=== PATIENT | female | born 1955 | race Asian ===

== ENCOUNTER → 2016-10-22 | Outpatient (CLI) | payer OTHER ==
--- NOTE | 2016-10-22 09:01 | US ---
Ultrasound Abdomen Limited INDICATION: Hepatitis B. TECHNIQUE: Limited right upper quadrant ultrasound is performed. No priors for comparison. FINDINGS: The pancreas is within normal limits. Abdominal aorta is normal in size, measuring 2 cm pro ximally, 1.6 cm in the midsection, and 1.6 cm distally. No significant plaque. No aneurysm or dissect ion or periaortic fluid collection. The liver measures 12.8 cm. It is normal in echotexture. No discrete mass. The edges of the border ar e smooth without nodularity. Portal vein is patent. Hepatic vein is patent. Multiple polyps are seen in the gallbladder, the largest measuring 3.5 x 2.7 x 3.7 mm. They do not co ntribute to shadowing. They are adherent to the salas and are nondependent. Nonmobile. No sludge. The gallbladder wall measures 2 mm. Common duct measures 2 mm. Sonographic Decker sign is negative. No p ericholecystic fluid collection. Right kidney measures 11.6 x 4.8 x 3.8 cm. Cortex is 1.3 cm. No hydronephrosis. No ascites or pleural effusion. IMPRESSION: 1. Homogeneous liver with smooth borders. No intrinsic mass. 2. Multiple gallbladder polyps.
== END ==
LOC: FIMAGING 07:20
PROVIDERS: ATTEND Internal Medicine Infectious Disease
DX: K82.4 Cholesterolosis of gallbladder (principal); B19.10 Unspecified viral hepatitis B without hepatic coma

== ENCOUNTER → 2017-08-06 | Outpatient (CLI) | payer OTHER | LOC: FIMAGING 08:14 | PROVIDERS: ATTEND Family Medicine | DX: Z12.31 Encounter for screening mammogram for malignant neoplasm of breast (principal) | CPT/HCPCS: G0202 ==

== ENCOUNTER → 2018-08-12 | Outpatient (CLI) | payer OTHER | LOC: FIMAGING 08:07 | PROVIDERS: ATTEND Family Medicine | DX: Z12.31 Encounter for screening mammogram for malignant neoplasm of breast (principal) ==